=== PATIENT | female | born 2000 | race Caucasian/White ===

== ENCOUNTER 2025-04-04 01:08 | Day surgery (SDC) | payer OTHER, SELFPAY ==
[2025-03-23 08:40] VITALS: BMI 33.5
--- NOTE | 2025-03-24 12:45 | PC.NURSE ---
[facility] has started construction of its new state of the art ER which will open Spring 2026. With this, we anticipate parking may be a challenge for some our surgical patients and families. Parking spaces are limited but are available for all Surgical, obstetrics, and ER patients sharing this lot. If you arrive and find you are having a hard time finding a parking space, please note that we understand the challenges, please drive around the hospital and park near Hospital Entrance 1. When you enter this entrance, you can ask a volunteer to direct or take you back to the surgical waiting area to check in. We appreciate everyone?s understanding of these expected challenges while we build for your future. Report to the Outpatient Waiting Room, entrance under the green pavilion located off [address], at time 0845 on date 04/04/25. Planned Procedure Time: 1045.? Time changes happen often and if your time is changed the preop area will call you the afternoon before. - You and your visitor will be asked to self-screen and do not enter if you have any COVID symptoms. Please call surgeon if you need to reschedule. - A mask is optional within the hospital at this time. Patients may have clear liquids (water, carbonated beverages, clear teas, apple juice) until 3 hours prior to surgery with a maximum of 20 ounces. - No food from midnight until time of surgery and no smoking, or chewing tobacco (or any form of nicotine). No chewing gum, candy or mints. Take only the following medications with a SIP of water on the morning of surgery: control pill DO NOT STOP ANY OF YOUR OTHER PRESCRIPTION MEDICATIONS PRIOR TO SURGERY EXCEPT THE FOLLOWING Hold all vitamins and supplements for 3 days per anesthesiologist. Medications to discontinue per physician: n/a Date to take last dose: n/a Please no make-up, nail danish, hairspray, perfume, deodorant, or body powder the day of surgery.? No jewelry (including any body piercings) or valuables the day of surgery, leave them at home.? Please take a shower or bath the night before, or the morning of, surgery with an antibacterial soap.? Wear comfortable, loose fitting clothing.? Children are encouraged to wear pajamas. - Jewelry must be removed prior to entering the operating room.? Rings and piercings that are not removed may be cut off. - The hospital will not accept responsibility for valuables.? - Please leave all valuables, including medications, at home the day of surgery. If you are going home after surgery, a licensed corrugated fastener driver must drive you home.? - NO public transportation without another adult if you receive anesthesia. - We recommend that an adult stay with you for 24 hours following discharge. - We also recommend that you do not drive, make important decision, drink alcoholic beverages, or take any drugs that were not prescribed by your health care provider for at least 24 hours after your discharge time. Follow any additional instructions given to you from your surgeon. Telephone instructions given to pt Linn Leon and asked if any additional questions and then verbalized understanding. Patient advised to call surgeon office or pre surgery nurse liaison [phone] if any additional questions.
--- NOTE | 2025-04-01 11:02 | PM.IMHP ---
H&P: HPI History of Present Illness Date/Time: 04/01/25 11:02 Chief Complaint: endometrial polyp Narrative: Carolyn is a 24yo G0, who presents for scheduled surgery. She reports she is getting in the winter then likely trying to conceive in the next year or so. Reports she's no longer having BTB or menstrual migraines on the Mircette OCPs, but when she has a period, it is very heavy and painful. She has been really good about taking it on time, doesn't miss doses. She is using heating pad and ibuprofen to help with the painful cramping. She is going through super plus tampon every 2 hours; has to wear period briefs at night. 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 Review of Systems Constitutional: Constitutional: Denies chills, Denies fever(s) and Denies headache(s) Eyes: Eyes: Denies change in vision ENT: Denies dizziness and Denies headache(s) Cardiovascular: Cardiovascular: Denies chest pain and Denies dyspnea Respiratory: Respiratory: Denies cough and Denies dyspnea Gastrointestinal: Gastrointestinal: Denies abdominal pain and Denies change in stool character Genitourinary: Genitourinary: Denies abnormal menses, Reports metrorrhagia, Reports dysmenorrhea, Denies pelvic pain, Denies vaginal discharge, Denies vaginal odor and Denies vaginal pruritus Neurologic: Denies dizziness and Denies headache(s) Psychiatric: Psychiatric: Denies anxiety and Denies depression [facility] Past Medical History Medical History (Updated 04/01/25 @ 11:03 by Dominique Rodrigues MD) Encounter for Nexplanon removal Nexplanon insertion Migraines Anxiety Surgical History Surgical History H/O rhinoplasty 2017 Family History Family History Mother Asthma Grandparent Breast cancer Lung cancer Diabetes mellitus Heart disease Sibling Heart disease brother and sister Other Hypertension Social History Social History (Updated 02/23/25 @ 15:00 by Sheron Orellana CMA) Smoking status: Never smoker Alcohol intake: current Alcohol use details: 1-4/wk, socially Substance use: never Substance use type: does not use Do You Feel Safe in your Home?: Yes Lack of Transportation: No Lack of Food: Never True Current Housing: I Have Housing Concerned About Future Housing: No Difficulty Paying Gas/Electric Bills: No Difficulty Paying for Meds: No Currently Unemployed: No Education: Master's Degree or Higher Difficulty w/ Childcare or Family Care: No Living arrangements: with family Additional living arrangements comments: fianc? Occupation/Education: occupation Gender identity (if verbalized by the patient): Female Sexual Orientation (if Verbalized by the Patient): Straight or Heterosexual Spiritual care concerns: No Meds Home Medications and Allergies Home Medications ?Medication ?Instructions ?Recorded ?Confirmed ?Type desogestrel 0.15 mg-ethinyl 1 tablet PO DAILY #112 tabs 12/01/24 03/23/25 Rx estradiol 0.03 mg tablet Allergies Allergy/AdvReac Type Severity Reaction Status Date / Time Penicillins AdvReac Severe Hives Verified 03/23/25 08:39 cefprozil (From Cefzil) AdvReac Intermediate Hives Verified 03/23/25 08:39 Exam Const: General: cooperative, healthy appearing, comfortable and no acute distress Orientation/consciousness: patient oriented x3 Resp: Effort & Inspection: normal respiratory effort Cardio: Rate: regular rate GI: Inspection: normal to inspection GI Palp: No abdominal tenderness and Yes Soft to palpation : Other: deferred to OR Skin: General skin exam: normal color Neuro: General: patient oriented x3 Extrem: General: normal to inspection Psych: Appearance: grossly normal Affect: normal affect Attitude: cooperative Assessment and Plan Assessment and plan (1) Abnormal uterine bleeding (AUB): Code(s): N93.9 - Abnormal uterine and vaginal bleeding, unspecified Status: Acute (2) Endometrial polyp: Code(s): N84.0 - Polyp of corpus uteri Status: Acute Plan - Endometrial polyp noted on US 12/2024; repeat US 03/2025 showed that it still persisted - Recommend hysteroscopy with polypectomy - Risks and benefits discussed in detail
--- OUTSIDE RECORDS SUMMARY | 2025-04-04 01:11 | XMS_ITS | Clinical Summary ---
Author Organization [facility] Address [address] [place] [address] Phone Care Team Providers Care Extension Work Director Name Role Phone Paty Chamorro APRN, CNP Primary Care Prov ider Allergies Active Allergy Reactions Criticality Noted Date Comments Cefprozil Rash 09/14/2013 Penicillins Rash 03/19/2009 Medications Guaifenesin-Code ine 100-10 MG/5ML PO SYRPIndications: URI (upper respiratory infection) take 10 mL by mouth every 6 hours as needed for Cough. 180 mL 0 03/19/2009 Active Viorele 0.15-0.02/0.01 MG (27/10) Tablet TK 1 T PO QD 04/10/2020 Active meloxicam (MOBIC) 15 MG Tablet Take 1 Tab by mouth daily. 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 Gender Identity Not on file Sexual Orientation Not on file Last Filed Vital Signs Vital Sign Reading Time Taken Comments Blood Pressure 152/82 06/09/2020 2:14 PM PHOTOGRAPHER FINISH Pulse 110 06/09/2020 2:14 PM PHOTOGRAPHER FINISH Temperature 37.3 C (99.1 F) 06/09/2020 2:14 PM PHOTOGRAPHER FINISH Respiratory Rate 18 06/09/2020 2:14 PM PHOTOGRAPHER FINISH Oxygen Saturation 97% 06/09/2020 2:14 PM PHOTOGRAPHER FINISH Inhaled Oxygen Concentration - - Weight 72.6 kg (160 lb) 06/09/2020 2:14 PM PHOTOGRAPHER FINISH s tated Height 172.7 cm (5' 8) 06/09/2020 2:14 PM PHOTOGRAPHER FINISH s tated Body Mass Index 24.33 06/09/2020 2:14 PM PHOTOGRAPHER FINISH Plan of Treatment Health Maintenance Due Date Last Done Comments Hepatitis C Virus (HCV) Screening 1998 Human Papillomavirus (HPV) Immunization (1 - 3-dose series) 2013 Influenza Immunization (#1) 02/07/202502/08, 03/08/2019, 02/28/2018, Additional history exists SARS-COV-2 Immunization (2024- season) 2025 08/26/2020, 08/05/2020 Respiratory Syncytial Virus (RSV) Immunization (Adult) (1 - 1-dose 75+ series) 2073 Hepatitis B Immunization Completed 000, 02/09/1999, 1998 Pneumococcal Immunization Combined Aged Out 04/24/2000, 01/10/2000 No longer eligibl e based on patient's age to complete this topic DTaP/Tdap/Td Immunization Discontinued 2009, 01/14/2004, 01/10/2000, Additional history exists TdaP Immunization Completed 01/12/2010 Meningococcal Immunization (ACWY) Completed 12/28/2015 Rotavirus Immunization Aged Out No lo nger eligible based on patient's age to complete this topic Insurance Care Teams Extension Work Director Relationship Specialty Start Date End Date Paty Chamorro, TRAFFIC INCIDENT MANAGEMENT MANAGER, HADOOP APPLICATION DEVELOPER [address] [place] [address] PCP - General Certified Nurse Practitioner 06/09/20
--- OUTSIDE RECORDS SUMMARY | 2025-04-04 01:11 | XMS_ITS | Clinical Summary ---
Author Organization [facility] Address [address] [place] [address] Care Team Providers Care Arch Support Maker Name Role Phone Shyanne Millan MD Primary Care Provider [phone] Allergies Active Allergy Reactions Criticality Noted Date Comments Cefprozil Rash Low 07/15/2021 Penicillins Hives High 07/15/2021 Broke in hives all over her body Medications VOLNEA 0.15-0.02/0.01 MG (27/10) tablet 04/28/2024 Ac tive sertraline (ZOLOFT) 100 MG tabletIndication s:Anxiety TAKE 1 TABLET(100 MG) BY MOUTH DAILY 30 tablet 3 12/06/2024 Active Active Problems Problem Noted Date Diagnosed Date Anxiety 07/19/2024 Irritable bowel syndrome wit h both constipation and diarrhea 07/19/2024 Migraines 04/15/2018 Overview (05/18/2024): I?ve been getting migraines for years tied to my cycle Encounters Date Type Department Care Team Description 02/19/2025 11:33 AM CDT - 02/19/2025 12:07 PM CDT Hospital Encounter [facility] [address] [place] [address] Merlyn Glover PA Sore Throat Discharge Disposition: Home or Self Care (Routine Discharge) 02/19/2025 Travel 02/01/2025 9:40 AM CDT Office Visit [facility] - [place] [address] [facility], [address] [place] [id number] Darby Caceres DO URI/ENT Symptoms (Pt has had cough, congestion and sore throat x 4 days) 02/01/2025 Travel from Last 3 Months Immunizations Immunization Administration Dates Next Due Dtap (Acel-Immune) 01/14/2004, 0,04/13/1999,02/09,1998 Hib-Hepatitis B (Comvax) 01/10/2000,02/09/1999,0 1998 Influenza (Generic) 02/28/2018, 7,04/27/2015,04/22,05/25/2003 Influenza Adult (Generic) 02/28/2020,03/08/2019, 04/04/2016 MMR (MMRII) 12/28/2015,01/14/2004,01/10/2000 Meningococcal (Generic) 01/12/2010 Meningococcal (Menactra) 12/28/2015 PFIZER COVID-19 (ORIGINAL FO RMULATION, PURPLE CAP) mRNA, LNP-S, PF, 30 MCG/0.3 ML DOSE 08/26/2020,08/05/2020 Pneumococcal (Prevnar 7) 04/24/2000,01/10/2000 Polio IPV (Ipol) 01/14/2004, 0,02/09/1999,12/05 Rotavirus (Rotashield) 1998 Tdap (Generic) 01/12/2010 Varicella (Varivax) 01/12/2010,01/10/2000 Family History Medical History Relation Comments Hyperlipidemia Father Hypertension Father Diabetes Maternal Grandfather Asthma Mother Cancer Paternal Grandfather Lung cancer Diabetes Paternal Grandfather Heart Disease Paternal Grandfather Cancer Paternal Grandmother Breast canc er Defects Sister Sister has a bi- cusped aortic valve Relation Status Comments Father Alive Maternal Grandfather Mother Alive Paternal Grandfather Paternal Grandmother Sister Social History Tobacco Use Types Packs/Day Years Used Date Smoking Tobacco: Never Passive Smoke Exposure: Current Smokeless Tobacco: Never Tobacco Cessation:Counseling Given: No Alcohol Use Standard Drinks/Week Comments Yes 0 (1 standard drink = 0.6 oz pur e alcohol) Socially PHQ-2 Answer Date Recorded Patient Health Questionnaire-2 Score 0 02/01/2025 Comments No Sex and Gender Information Value Date Recorded Sex Assigned at Female 02/01/2025 9:36 AM CDT Legal 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 Gender Identity Not on file Sexual Orientation Not on file Last Filed Vital Signs Vital Sign Reading Time Taken Comments Blood Pressure 141/92 02/19/2025 11:35 AM CDT Pulse 94 02/19/2025 11:35 AM CDT Temperature 36.6 C (97.8 F) 02/19/2025 11:35 AM CDT Respiratory Rate 16 02/19/2025 11:35 AM CDT Oxygen Saturation 100% 02/19/2025 11:35 AM CDT Inhaled Oxygen Concentration - - Weight 99.8 kg (220 lb) 02/19/2025 11:35 AM CDT Height 172.7 cm (5' 8) 02/19/2025 11:35 AM CDT Body Mass Index 33.45 02/19/2025 11:35 AM CDT Plan of Treatment Health Maintenance Due Date Last Done Comments Cervical Cancer Screening Pap Smear (Age 21 to 29) Every 3 Years 1998 Cervical Cancer Screening 1998 Annual Physical 2001 HPV Vaccines (1 - 3-dose series) 2013 Hepatitis C 2016 DTaP, Tdap and Td Vaccines (7 - Td or Tdap) 01/13/2020 01/12/2010, 01/14/2004, 01/10/2000, Additional history exists COVID-19 Vaccine ( season) 2025 08/26/2020, 08/05/2020 Influenza Adult (#1) 2025 02/28/2020, 03/08/2019, 02/28/2018, Additional history exists Hepatitis B Vaccines Completed 01/10/2000, 02/09/1999, 1998 Pneumococcal Vaccine: Pediatrics (0 to 5 Years) and At-Risk Patients (6 to 49 Years) Aged Out 04/24/2000, 01/10/2000 No longer eligibl e based on patient's age to complete this topic Meningococcal Vaccine Completed 12/28/2015, 010 PHQ-2 (Physician [place]) Completed 02/01/2025 Hepatitis A Vaccines Aged Out No long er eligible based on patient's age to complete this topic Meningococcal B Vaccine Aged Out No l onger eligible based on patient's age to complete this topic RSV Immunizations Under 20 Months Aged Out No longer eligible based on patient's age to complete this topic Procedures Procedure Name Priority Date/Time Associated Diagnosis Comments STREP A RAPID STAT 02/19/2025 11:38 AM CDT CORONAVIRUS (COVID-19) INFLUENZA A & B ANTIGEN IA PANEL Routine 02/01/2025 Upper respiratory tract infection, unspecified type from Last 3 Months Results * (ABNORMAL) STREP A RAPID (02/19/2025 11:38 AM CDT) SPECIMEN TYPE THROAT 02/19/2025 11:40 AM CDT [facility] CARE RAPID STREP TEST POSITIVE(A ) NEGATIVE 02/19/2025 11:53 AM CDT [facility] CARE STRUCTURE OF ANTERIOR REGION OF NECK / Unknown 02/19/2025 11:38 AM CDT Merlyn ABREU MICROBIOLOGY - GENERAL ORDER [place] Final Result [facility] [address] [place] [address], * CORONAVIRUS (COVID-19) INFLUENZA A & B ANTIGEN IA PANEL (02/01/2025) CORONAVIRUS ANTIGEN IA NEGATIVE NEGATIVE [facility] [place] [place] INFLUENZA A NEGATIVE NEGATIVE [facility] [place] [place] INFLUENZA B NEGATIVE NEGATIVE [facility] [place] [place] Internal Control: VALID VALID [facility] [place] NASAL STRUCTURE / Unknown 02/01/2025 Darby Caceres DO MICROBIOLOGY - GENERAL ORDERA BLES Final Result [facility] [address] [facility] [address] [place] [id number], from Last 3 Months Insurance [facility] Care Teams Arch Support Maker Relationship Specialty Start Date End Date Shyanne Millan MD [address] [place] [address] [place] [address] PCP - General FAMILY PRACTICE 05/18/24
--- OUTSIDE RECORDS SUMMARY | 2025-04-04 01:12 | XMS_ITS | Patient Health Record ---
Author Organization [facility] Address [address] [place], [place] [address] Care Team Providers Care Information Technology Coordinator Name Role Phone [place] Paty Primary Care Provider [phone] Allergies Allergen (clinical drug ingredient) Drug/Non Drug Allergy documented on EMR Reaction Allergy Type Onset Date Status cephcil (uncoded) hives Allergy Ac tive penicilllin (uncoded) hives Allergy Active Reason For Referral No Information Medications Medication SIG (Take, Route, Frequency, Duration) Notes Start Date End Date Status Nexplanon 68 MG Implant as directed Subcutaneous Active Vitamin D3 2000 UNIT Capsule 1 capsule Orally Once a day 06/11/2018 Active hydrOXYzine HCl 25 MG Tablet 1 tablet as needed Orally Once a day 01/17/2023 Active Escitalopram Oxalate 20 mg Tablet take 1 tablet daily; Duration: 90 days Active Immunizations Vaccine Route Administration Date Status Comme nts Varivax Unknown 01/10/2000 Administered Varivax Unknown 01/12/2010 Administered TDaP over 7 yrs. (Adacel) Unknown 01/12/2010 Pending TDaP over 7 yrs. (Adacel) Unknown 01/12/2010 Administered Rotavirus (unspecified formulation) Unknown 1998 Administered Prevnar PCV7 Unknown 01/10/2000 Administered Prevnar PCV7 Unknown 04/24/2000 Administered MMR Unknown 01/10/2000 Administered MMR Unknown 01/14/2004 Administered Meningococcal MCV4P Unknown 01/12/2010 Administered Meningococcal MCV4P Unknown 12/28/2015 Administered IPV - Poliovirus Unknown 1998 Administered IPV - Poliovirus Unknown 02/09/1999 Administered IPV - Poliovirus Unknown 01/10/2000 Administered IPV - Poliovirus Unknown 01/14/2004 Administered Influenza (unspecified formulation) Unknown 05/25/2003 Administered Influenza (unspecified formulation) Unknown 03/24/2008 Administered Influenza (unspecified formulation) Unknown 05/15/2009 Administered Influenza (unspecified formulation) Unknown 03/15/2011 Administered Influenza (unspecified formulation) Unknown 03/16/2012 Administered Influenza (unspecified formulation) Unknown 03/24/2013 Administered Influenza (unspecified formulation) Unknown 04/22/2014 Administered Influenza (unspecified formulation) Unknown 04/27/2015 Administered Influenza (unspecified formulation) Unknown 04/04/2016 Administered Influenza Unknown 04/04/2016 Pending Influenza IM Intramuscular 02/07/2017 Administered Inject ion was given in the left deltoid. Patient tolerated the procedure well and a bandaid was applied. PAD, RN Influenza IM Intramuscular 02/28/2018 Administered Pt tolerated well. Pt verbalized understanding of immunization education. Pt left office with out Signs of adverse reaction. BW, VAMP PRESSER Influenza Unknown 03/09/2019 Administered HPV (unspecified formulation) Unknown 12/17/2012 Administered HPV (unspecified formulation) Unknown 03/24/2013 Administered Hib (unspecified formulation) Unknown 1998 Administered Hib (unspecified formulation) Unknown 02/09/1999 Administered Hib (unspecified formulation) Unknown 01/10/2000 Administered Hepatitis B (unspecified formulation) Unknown 1998 Administered Hepatitis B (unspecified formulation) Unknown 02/09/1999 Administered Hepatitis B (unspecified formulation) Unknown 01/10/2000 Administered Hep A (unspecified formulation) Unknown 12/17/2012 Administered Hep A (unspecified formulation) Unknown 12/28/2015 Administered DTaP, younger than 7yrs Unknown 1998 Administered DTaP, younger than 7yrs Unknown 02/09/1999 Administered DTaP, younger than 7yrs Unknown 04/13/1999 Administered DTaP, younger than 7yrs Unknown 01/10/2000 Administered DTaP, younger than 7yrs Unknown 01/14/2004 Administered Adacel IM Intramuscular 12/13/2021 Administered Patien t verbalized understanding of immunization education. Patient tolerated injection well and left clinic without Sx/Sx of adverse reaction. 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 Two to four times a month (2 points) How many drinks did you have on a typical day when you were drinking in the past year? 1 or 2 (0 points) How often did you have six o r more drinks on one occasion in the past year? 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 -S tudent studying Special Ed No Tobacco, no etoh, SIUE -S tudent studying Special Ed No Tobacco, no etoh, SIUE -S tudent studying Special Ed No Tobacco, no etoh, SIUE -S tudent studying Special Ed No Tobacco, no etoh, SIUE -S tudent studying Special Ed No Tobacco, no etoh, SIUE -S tudent studying Special Ed No Tobacco, no etoh, SIUE -S tudent studying Special Ed No Tobacco, no etoh, special feather edger in [place], single (partner), no kids No Tobacco, no etoh, special feather edger in [place], single (partner), no kids No Tobacco, social etoh, spe cial feather edger in [place], single (partner), no kids Problems Problem Type SNOMED Code ICD Code Onset Dates Problem Status W/U Status Risk Notes Problem Anxiety (24894524) Anxiety (F41.9) Active confirmed Problem Vitamin D deficiency (89403016) Vitamin D deficiency (E55.9) Active confirmed Problem Dysmenorrhea (627197810) Dysmenorrhea (N94.6) Active confirmed Problem Family history: Congenital anomaly (808073742) Family history of bicuspid aortic valve (Z82.79) Active confirmed Patient had normal echo 08/2018. Problem Menstrual migraine (53065186) Menstrual migraine without status migrainosus, not intractable (G43.829) Active confirmed Problem Contraception care management (173610073) Unspecified contraceptive management (Z30.9) Active confirmed Plan Of Treatment No Information Insurance Providers Payer Name Payer Address Payer Phone Subscriber Number Group Number Insured Name Patient Relationship to Insured Coverage Start Date Coverage End Date [facility] [address] [address] [place] [address] [id number] Carolyn Harvey Self - patient is the insured [facility] [address] [address] [place] [address] [id number] [place] Harvey Child - Insured does not have Financial Responsibility (includes legally adopted child) Medical (General) History Medical History History ICD Code Dysmenorrhea Menstrual migraine without status migrai nosus, not intractable G43.829 Anxiety F41.9 Vitamin D deficiency Surgical History Surgery Date(Month/Year) Nose Surgery 12/23/2016 [place] [facility]
--- NOTE | 2025-04-04 07:07 | WPDHPUPDATE1 ---
History and Physical Update Update Date/Time: 04/04/25 07:07 History and Physical has been reviewed, including an updated exam of the patient. There are NO changes in the patient's condition. Risks, benefits, and alternatives have been discussed and questions answered. Patient agrees to proceed with hysteroscopy with polypectomy .
[2025-04-04] MEDS: LACTATED RINGERS 1,000 ML 30 ML IV CONT (09:00)
--- NOTE | 2025-04-04 09:22 | P.PNAN_ITS ---
Anes - Initial Pre Proc Eval Procedure: Operation Date: 04/04/25 10:45 Proposed Procedures p Hysteroscopy with Polypectomy - Dominique Rodrigues MD Date/Time: 04/04/25 09:22 Surgeon: Dominique Rodrigues MD Pre Op Diagnosis: Endometrial Polyp Patient Data Age: 24 Gender: F Height: 1.73 m Weight: 100 kg Allergies Allergy/AdvReac Type Severity Reaction Status Date / Time Penicillins AdvReac Severe Hives Verified 03/23/25 08:39 cefprozil (From Cefzil) AdvReac Intermediate Hives Verified 03/23/25 08:39 Home Medications ?Medication ?Instructions ?Recorded ?Confirmed ?Type desogestrel 0.15 mg-ethinyl 1 tablet PO DAILY #112 tab s 12/01/24 03/23/25 Rx estradiol 0.03 mg tablet Patient hx anesthesia problems: none Family hx anesthesia problems: none Results Review: All pre-operative results and documents have been reviewed as part of the pre- operative evaluation. [facility] Past Medical History Medical History Encounter for Nexplanon removal Nexplanon insertion Migraines Anxiety Surgical History Surgical History H/O rhinoplasty 2017 Family History Family History Mother Asthma Grandparent Breast cancer Lung cancer Diabetes mellitus Heart disease Sibling Heart disease brother and sister Other Hypertension Social History Social History Smoking status: Never smoker Alcohol intake: current Alcohol use details: 1-4/wk, socially Substance use: never Substance use type: does not use Do You Feel Safe in your Home?: Yes Lack of Transportation: No Lack of Food: Never True Current Housing: I Have Housing Concerned About Future Housing: No Difficulty Paying Gas/Electric Bills: No Difficulty Paying for Meds: No Currently Unemployed: No Education: Master's Degree or Higher Difficulty w/ Childcare or Family Care: No Living arrangements: with family Additional living arrangements comments: fianc? Occupation/Education: occupation Gender identity (if verbalized by the patient): Female Sexual Orientation (if Verbalized by the Patient): Straight or Heterosexual Spiritual care concerns: No Anes - Eval Final PreProcedure Day of Procedure 04/04/25 09:22 Patient weight: obese Heart: regular rate and rhythm Lungs: clear to auscultation Airway: Mallampati scale class II Neurological: alert and oriented Last oral intake: >/= 8 hours ASA classification: II Emergent: no Anesthetic plan: proceed Anesthesia type and monitoring: general GIVS and standard monitoring Results Review: All pre-operative results and documents have been reviewed as part of the pre- operative evaluation. Informed Consent: The patient's anesthetic plan and its attendant risks and benefits were discussed with the patient/family/POA. Questions were solicited and answers provided to the satisfaction of the patient/family/POA.
[2025-04-04 09:33] VITALS: BP 134/72; PULSE 110; RESP 16; TEMP 36.6; O2SAT 100
[2025-04-04] MEDS: ACETAMINOPHEN 500 MG TABLET 1000 MG PO (09:37)
[2025-04-04 09:38] LABS: BEDSIDEPREGUCG Negative (Negative)
[2025-04-04] MEDS: KETOROLAC 30 MG/ML VIAL (*BKC) IV PUSH (11:32)
--- NOTE | 2025-04-04 11:32 | S_PTH ---
PATIENT: Carolyn Harvey V LOC: [facility] U#:[id number] AGE/SX: 24/F ROOM: RE04/04/[address]: Dominique Rodrigues MD : 2000 BED: DIS: 04/04/2025 SPEC #: [id number] RECD: 04/04/25 12:46 STATUS: REJI REQ #: [id number] CHARANJIT: 04/04/25 11:[address]: Dominique Rodrigues DEPT: [facility] [place] Surgical RECD BY: Marcus Dejesus Tissues: A - Endometrial Curettings Procedures: Hematoxylin and Eosin Stain Gross and Microscopic Level 4
[2025-04-04 11:45] VITALS: BP 126/84; PULSE 98; RESP 18; O2SAT 97
--- NOTE | 2025-04-04 11:45 | W.PM.PROC2 ---
Procedure Note - Detailed Date of Procedure 04/04/25 Pre-op Diagnosis Abnormal uterine bleeding Endometrial Polyp Post-op Diagnosis Other (No polyp found) Procedure Performed Operative Hysteroscopy with endometrial sampling/biopsy Surgeon Dominique Rodrigues MD Anesthesia MAC Findings Uterus sounded to 9cm, normal appearing cervix. Slightly thickened polypoid tissue arising from anterior uterine wall; all areas of the uterine lining sampled. Good hemostasis at end of case. Fluid deficit: 120cc. Description of Procedure Carolyn was taken to the operating room where she was placed under sedation without complications. She was then prepped and draped in the usual sterile fashion in the dorsal lithotomy position with her legs in low Brad stirrups. A time-out was performed and no perioperative antibiotics were indicated. A bivalve speculum was placed within the vagina where the cervix was easily identified. The anterior lip of the cervix was grasped with a single-tooth tenaculum. The uterus was sounded. The cervix was then serially dilated to allow for the hysteroscope. The hysteroscope was advanced into the uterine cavity with the above findings noted. Using the [facility] [employer] tissue shaver was used to remove the tissue and sample the entire cavity. Good hemostasis was noted. All instruments were removed from the vagina. Sponge, lap, instrument, and needle counts were correct at the end of the procedure. Patient was awoken from anesthesia and taken to recovery with plans of same-day discharge home. Estimated Blood Loss 3 IV Fluids 800 Pathology Yes (endometrial shavings) Complications No immediate complications Condition Stable Disposition Same day [facility] Billing Surgery - Charge Forward: Surgery Billing
[2025-04-04 12:10] VITALS: BP 142/82; PULSE 92; RESP 16; O2SAT 100
[2025-04-04] MEDS: oxyCODONE HCL (*CRX) 5 MG TAB IR PO (12:10)
[2025-04-04 12:40] VITALS: BP 138/84; PULSE 86; RESP 16
== END 2025-04-04 12:51 | disposition home or self-care (01) ==
PROVIDERS: Visit Provider Obstetrics & Gynecology
PROC: 0U5B8ZZ Destruction of Endometrium, Via Natural or Artificial Opening Endoscopic (ICD-10-PCS; CPT 58563; principal; 2025-04-04 10:45)
DX: N93.9 Abnormal uterine and vaginal bleeding, unspecified (principal); N84.0 Polyp of corpus uteri; E66.9 Obesity, unspecified; Z68.34 Body mass index [BMI] 34.0-34.9, adult
CPT/HCPCS: 58558; 88305; A9270; J1885; J2003; J2250; J2704; J3010; J7120